=== PATIENT | female | born 1975 | race Caucasian/White ===

== ENCOUNTER 2023-04-17 11:17 | Emergency (ER) | payer OTHER, SELFPAY ==
[2023-04-17 11:21] VITALS: BP 146/84
[2023-04-17 12:15] VITALS: BP 116/75
[2023-04-17 12:29] LABS: % Basophils 0.2 % (0-2); % Eosinophils 0.5 % (0-6); % Immature Granulocytes 0.3 % (0-0.5); % Lymphocytes 18.4 % (20.5-51.1); % Monocytes 4.1 % (1.7-9.3); % Neutrophils 76.5 % (42.2-75.2); Absolute Eosinophils 0.1 10^3/uL (0-0.7); Absolute Lymphocytes 1.7 10^3/uL (1.2-3.4); Absolute Monocytes 0.4 10^3/uL (0.1-0.6); Hematocrit 38.7 % (37.0-47.0); Mean Corp Hgb Conc. 33.6 g/dL (33.0-37.0); Mean Corpuscular Hgb 29.5 pg (27.0-31.0); Mean Corpuscular Volume 87.8 fL (81.0-99.0); Mean Platelet Volume 11.9 fL (7.4-10.4); Nucleated Red Blood Cells % 0 %; Platelet Count 197 10^3/uL (130-400); Red Blood Cell Count 4.41 10^6/uL (4.20-5.40); Red Cell Dist. Width 12.8 % (11.5-14.5); White Blood Cell Count 9.1 10^3/uL (4.8-10.8)
[2023-04-17 12:42] LABS: ALT (SGPT) 30 U/L (0-35); AST (SGOT) 28 U/L (14-36); Albumin 4.4 g/dl (3.5-5.0); Alkaline Phosphatase 71 U/L (38-126); Blood Urea Nitrogen 12 mg/dl (7-17); Calcium 9.1 mg/dl (8.4-10.2); Carbon Dioxide 25 mmol/L (22-30); Chloride 104 mmol/L (98-107); Glucose 89 mg/dl (70-99); Potassium 4.3 mmol/L (3.5-5.1); Sodium 135 mmol/L (135-145); Total Bilirubin 0.6 mg/dl (0.2-1.3); eGFR > 60.00
--- NOTE | 2023-04-17 12:50 | ED.GENMED ---
History of Present Illness
General
Chief Complaint: Dizziness
Time Seen by Provider: 04/17/23 11:47
Travel History
Have you had any contact with someone who has COVID-19?: No
Do you have any symptoms of coronavirus? Fever > 100 degrees, chills, cough, shortness of breath, sore throat, loss of taste or smell, muscle aches, or headache?: No
History of Present Illness
History of Present Illness:
47-year-old female with no past medical history presents to the emergency department for evaluation of lightheadedness and tingling of both upper extremities for the past several days. She denies any provoking or palliating factors. Denies any
vision changes or vertigo, denies any nausea or vomiting. No fevers or chills. No URI symptoms. Denies any new medications or amos-rfx-cwerhza supplements. Last menstrual cycle was several months ago, feels as though she is perimenopausal.
Past History
Social History
Tobacco: Non-smoker
Alcohol: Occasional
Drug: None
Personal:
Review of Systems
Review of Systems
Allergies reviewed?: Yes
All Other Systems: ROS reviewed and negative except as documented in HPI and ROS
Phy Exam
Physical Exam
Physical Exam:
GEN: Well appearing, NAD, WDWN
HEENT: Oral mucosa moist, no scleral icterus
Cardiac: Regular rate
Lung: No respiratory distress, no tachypnea
MSK: No gross deformity or injuries
Skin: Good color, no pallor or jaundice, no rashes
Neuro: AO x3, moves all extremities freely. Cranial nerves II through XII grossly intact, bilateral upper and lower extremity strength is 5 out of 5 in all kearns and symmetric
Psych: Calm, cooperative
Course
Orders/Labs/Results
Orders:
Orders
04/17/23 11:58
Electrocardiogram (*1) Urgent
Reason for Study: Vertigo / Dizzy
EKG- Treatment ONCE
04/17/23 12:21
Complete Blood Count/With Diff Urgent
Comprehensive Metabolic Panel Urgent
TSH Reflex To Free T4 Urgent
Abnormal Lab Results
04/17/23
12:21
MPV 11.9 H fL
(7.4-10.4)
Absolute Neuts (auto) 7.0 H 10^3/uL
(1.4-6.5)
Neutrophils % 76.5 H %
(42.2-75.2)
Lymphocytes % 18.4 L %
(20.5-51.1)
04/17/23 12:21
04/17/23 12:21
Vital Signs
Initial and Last Documented VS:
Initial Vital Signs
Temp Pulse Resp Pulse Ox
98.7 F 81 18 100
04/17/23 11:18 04/17/23 11:18 04/17/23 11:18 04/17/23 11:18
Last Documented Vital Signs
Temp Pulse Resp BP Pulse Ox
98.7 F 73 19 110/74 99
04/17/23 11:18 04/17/23 13:15 04/17/23 13:15 04/17/23 13:15 04/17/23 13:15
MDM/Problems Addressed
MDM/Problems Addressed:
Unclear etiology to patient's symptoms. She is neurologically intact with no focal deficits. EKG independently interpreted by me shows a normal sinus rhythm with no ST changes concerning for ischemia. Labs are unremarkable. Recommend outpatient
primary care follow-up if symptoms persist
*Critical Care Note
Total Time (30-74mins, 75-104mins- exclusive of procedures): Not Applicable
ED Attending Note
-
Portions of this chart may have been created with voice recognition software.� Occasional wrong word or��sound alike� substitutions may have occurred due to the inherent limitations of voice recognition software.
Discharge Plan
Departure
Patient Disposition: Home (Routine Discharge)
Date of Disposition: 04/17/23
Time of Disposition: 13:10
Patient with high blood pressure during this ER visit?: No
Discharge Problem:
Light-headedness
Instructions: Dizziness, Nonvertigo, (DC)
Prescriptions:
No Action
No Current Medications
0
Referrals:
Marry Flores PA [Family Provider] -
Interventions
Interventions:
*Risk Screen - Suicide Last Done: 04/17/23 11:18
*General Assessment Last Done: 04/17/23 11:18
*Neglect/Abuse Screening Last Done: 04/17/23 11:18
ED- Fall Risk Assessment Last Done: 04/17/23 12:23
*ED COVID-19 Vaccine History Last Done: 04/17/23 11:18
*Nursing Disposition Last Done: 04/17/23 13:20
ED- Neurological Assessment Last Done: 04/17/23 12:23
ED- Cardiac Assessment Last Done: 04/17/23 12:23
Discharge Date and Time
Discharge Date/Time: 04/17/23 13:20
[2023-04-17 13:12] LABS: TSH Reflex To Free T4 2.09 uIU/ml (0.47-4.68)
[2023-04-17 13:15] VITALS: BP 110/74
== END 2023-04-17 13:20 | disposition home or self-care (01) ==
LOC: EMR 11:17
PROVIDERS: Physician Assistant; EMERGENCY PHYSICIAN Emergency Medicine; FAMILY PHYSICIAN Physician Assistant Medical
DX: R42 Dizziness and giddiness (principal); R20.2 Paresthesia of skin
CPT/HCPCS: 99284; 80053; 84443; 85025; 93005

== ENCOUNTER → 2024-05-09 16:05 | Outpatient (REF) | payer OTHER, SELFPAY | LOC: WDC 16:05 | PROVIDERS: ATTENDING PHYSICIAN Physician Assistant Medical | DX: Z12.31 Encounter for screening mammogram for malignant neoplasm of breast (principal) | CPT/HCPCS: 77063; 77067 ==

== ENCOUNTER → 2024-05-15 08:47 | Outpatient (REF) | payer OTHER, SELFPAY | LOC: WDC 08:47 | PROVIDERS: ATTENDING PHYSICIAN Physician Assistant Medical | DX: R92.8 Other abnormal and inconclusive findings on diagnostic imaging of breast (principal) | CPT/HCPCS: 76642 ==

== ENCOUNTER 2024-08-15 06:33 | Day surgery (SDC) | payer OTHER, SELFPAY | END 2024-08-15 12:33 | disposition home or self-care (01) | LOC: GI 06:33 | PROVIDERS: ATTENDING PHYSICIAN Internal Medicine Gastroenterology | DX: Z12.11 Encounter for screening for malignant neoplasm of colon (principal); K57.30 Diverticulosis of large intestine without perforation or abscess without bleeding; K64.8 Other hemorrhoids | CPT/HCPCS: G0121 ==